=== PATIENT | male | born 1955 | race Caucasian/White ===

== ENCOUNTER 2020-09-05 15:27 | Inpatient (IN) | payer MEDICARE ==
[~2020-09-05] VITALS: Ht 182.9 cm; Wt 90.0 kg
[2020-09-05] MEDS ORDERED: HALOPERIDOL LACT 5 MG/ML VIAL. IM PRN (17:30)
[2020-09-05] MEDS ORDERED: cloNIDine HCL 0.1 MG TABLET PO PRN (17:30)
[2020-09-05] MEDS ORDERED: diphenhydrAMINE 50 MG/ML VIAL IVP PRN (17:30)
[2020-09-05] MEDS ORDERED: ACETAMINOPHEN 325 MG TABLET PO PRN (17:45)
[2020-09-05] MEDS ORDERED: KETOROLAC 30 MG/ML VIAL. IVP PRN (18:00)
[2020-09-05 18:05] LABS: BASO % 1 % (0-3); EOS % 0 % (0-3); HEMATOCRIT 39.7 % (39.0-53.0); HEMOGLOBIN 13.7 g/dL (13.0-17.5); LYMPH # 0.6 x10^3/uL (1.0-4.8); LYMPH % 11 % (24-48); MEAN CORPUSCULAR HEMOGLOBIN 34 pg (25-35); MEAN CORPUSCULAR HGB CONC 34 g/dL (31-37); MEAN CORPUSCULAR VOLUME 99 fL (79-100); MONO # 0.6 x10^3/uL (0.0-1.1); MONO % 10 % (0-9); NEUT # 4.7 x10^3uL (1.8-7.7); NEUT % 78 % (31-73); PLATELET COUNT 187 x10^3/uL (140-400); RED BLOOD COUNT 4.02 x10^6/uL (4.30-5.70); RED CELL DISTRIBUTION WIDTH 13.8 % (11.5-14.5); WHITE BLOOD COUNT 5.9 x10^3/uL (4.0-11.0)
[2020-09-05 18:10] LABS: ALBUMIN 4.3 g/dL (3.4-5.0); ALBUMIN/GLOBULIN RATIO 1.3 (1.0-1.7); CALCIUM 9.1 mg/dL (8.5-10.1); CREATININE 0.6 mg/dL (0.7-1.3); DIRECT BILIRUBIN 0.4 mg/dL (0.0-0.2); GFR 136.1; POTASSIUM 4.4 mmol/L (3.5-5.1); TOTAL BILIRUBIN 1.3 mg/dL (0.2-1.0); TOTAL PROTEIN 7.5 g/dL (6.4-8.2)
--- NOTE | 2020-09-05 19:16 | RAD ---
PQRS Compliance Statement: One or more of the following individualized dose reduction techniques were utilized for this examinat ion: 1. Automated exposure control 2. Adjustment of the mA and/or kV according to patient size 3. Use of iterative reconstruction technique CT head without contrast 09/05/2020 5:55 PM INDICATION: Altered mental status COMPARISON: None available TECHNIQUE: Multiple axial CT images of the head were obtained from skull base through the vertex with out intravenous contrast. FINDINGS: Head: Ventricles, sulci and basal cisterns are prominent compatible with mild generalized cerebral volume l oss.. Low-attenuation in the periventricular white matter is suggestive of chronic small vessel ische lencho changes. There is no hydrocephalus. Stewart-white matter differentiation is normal. There is no acut e intracranial hemorrhage. There is no mass, mass effect or midline shift. Posterior fossa is normal in appearance. Visualized portions of the orbits are normal. Paranasal sinuses are well aerated. Mastoid air cells a re well aerated. Scalp and calvaria are normal. IMPRESSION: No acute intracranial hemorrhage. Mild generalized cerebral volume loss. Low-attenuation in the periventricular white matter is suggest baljinder of chronic small vessel ischemic changes. Electronically signed by: Ting Wood MD (09/05/2020 7:14 PM) [facility]
[2020-09-05 19:44] VITALS: BP 182/79
[2020-09-05] MEDS ORDERED: VENL150C PO (20:14)
[2020-09-05] MEDS ORDERED: DIPH25CA58 PO (20:14)
[2020-09-05] MEDS ORDERED: LISI40TA6 PO (20:14)
[2020-09-05] MEDS ORDERED: CRESTOR10 MG PO (20:14)
[2020-09-05] MEDS ORDERED: METO50TA29 PO (20:14)
[2020-09-05] MEDS: traMADol 50 MG TABLET PO PRN (20:30)
[2020-09-05 21:13] LABS: BARBITURATES NEG (NEG); BENZODIAZEPINES NEG (NEG); CANNABINOIDS POS (NEG); COCAINE NEG (NEG); METHADONE NEG (NEG); OPIATES NEG (NEG); PHENCYCLIDINE NEG (NEG)
[2020-09-05 21:14] LABS: AMPHETAMINE/METHAMPHETAMINE NEG (NEG)
[2020-09-05 21:21] LABS: CLARITY,URINE CLEAR; COLOR,URINE AMBER; GLUCOSE,URINE NEG (NEG)
[2020-09-05 21:22] LABS: BACTERIA,URINE 0 /HPF (0-FEW); BILIRUBIN,URINE MOD (NEG); NITRITE,URINE NEG (NEG); SQUAMOUS EPITHELIAL CELL,UR OCC /LPF; WBC,URINE RARE /HPF (0-4)
[2020-09-05] MEDS: VENLAFAXINE 50 MG TABLET. PO SCH (23:20)
[2020-09-05 23:27] VITALS: BP 162/86
[2020-09-06 06:16] VITALS: BP 158/86
[2020-09-06] MEDS: diphenhydrAMINE HCL 25 MG CAPSULE PO SCH ×2 (08:52→09:00)
[2020-09-06] MEDS: METOPROLOL SUCC 24HR ER 50 MG TAB.ER.24H. PO SCH (08:53)
[2020-09-06] MEDS: LISINOPRIL 20 MG TABLET PO SCH (08:53)
[2020-09-06] MEDS: traMADol 50 MG TABLET PO PRN (08:53)
[2020-09-06] MEDS: MVI, ADULT NO.4 WITH VIT K 10 ML, THIAMINE INJ 100 MG, FOLIC ACID INJ 1 MG in IV NORMAL... IV SCH (08:54)
[2020-09-06] MEDS: VENLAFAXINE 50 MG TABLET. PO SCH ×3 (08:54→21:09)
--- NOTE | 2020-09-06 09:22 | RAD ---
EXAM: XR CHEST 2V 09/05/2020 5:55 PM CLINICAL INDICATION: Shortness of air COMPARISON: None TECHNIQUE: PA and lateral views of the chest FINDINGS: The heart and mediastinum are normal. Lungs are well-expanded. There is a nodule projecti ng over anterior right first rib in the medial right apex, likely costochondral degenerative changes. Underlying pulmonary nodule not entirely excluded although no abnormality seen on lateral view. No c onsolidation, pleural effusion, or pneumothorax. Pulmonary vascularity is normal. Mild right acromio clavicular degenerative joint disease. There is lower cervical fusion hardware.. IMPRESSION: Nodule projecting over the anterior right first rib in the medial right apex is most like ly due to costochondral degenerative changes. An underlying pulmonary nodule is not entirely excluded . Comparison with prior exams would be useful. Otherwise normal chest radiograph. Electronically signed by: Katlin Reyes MD (09/06/2020 9:20 AM) [id number]
[2020-09-06 10:42] VITALS: BP 153/86
[2020-09-06] MEDS ORDERED: NALTREXONE HCL 50 MG TABLET PO SCH (11:00)
[2020-09-06] MEDS: ARIPiprazole 5 MG TABLET PO SCH (11:10)
[2020-09-06] MEDS: PANTOPRAZOLE 40 MG TABLET. PO SCH (11:10)
--- NOTE | 2020-09-06 12:39 | EKG ---
[address] [address] Test Date: 2020-09-06 Test Time: 12:21:19 Pat Name: ANGELLA FLORES Department: Room: 107 A Gender: M [employer]: : 1955 Requested By: CEDRICK HOLLEY Order Number: [id number] Reading MD: Measurements Intervals [place] Rate: 68 P: 55 WI: 168 QRS: 5 QRSD: 92 T: 39 QT: 406 QTc: 437 Interpretive Statements SINUS RHYTHM NO SPECIFIC ECG ABNORMALITIES RI6.01 No previous ECG available for comparison
[2020-09-06] MEDS ORDERED: IOHEXOL 300 MG/ML 75 ML VIAL. IV ONE (13:15)
[2020-09-06 14:16] VITALS: BP 165/83
--- NOTE | 2020-09-06 14:31 | RAD ---
Study: CT chest, abdomen and pelvis with contrast INDICATION: Possible lung mass. COMPARISON: No prior CT imaging of the chest, abdomen or pelvis. TECHNIQUE: Helical CT imaging performed of the chest, abdomen and pelvis after the intravenous admini stration of 75 cc Omnipaque 300. Coronal and sagittal reformats were obtained. One or more of the following individualized dose reduction techniques were utilized for this examinat ion: 1. Automated exposure control 2. Adjustment of the mA and/or kV according to patient size 3. Use of iterative reconstruction technique. FINDINGS: CT Chest: No mass or suspicious pulmonary nodule on either side. A few tiny nodules measuring 2.5 mm or less ar e identified such as at the far inferior lingula on image 46 series 3 but do not warrant dedicated fo llow-up per Fleischner guidelines. No airspace infiltrate, pleural effusion or pneumothorax. Patent c entral airways. Scattered calcific atherosclerosis to include coronary artery involvement. The visualized great vesse ls are patent. No aortic aneurysm or dissection. Normal main pulmonary artery caliber. Very small hiatal hernia. No pathologically enlarged mediastinal or hilar lymph nodes. The visualized thyroid is unremarkable. No axillary lymphadenopathy. No acute or aggressive osseous p rocess. Partially imaged ACDF construct at C6 and C7. Discogenic arthrosis at C7-T1 and T1-T2 CT Abdomen/Pelvis: Diffuse hepatic steatosis. Mildly distended gallbladder without CT manifestations of acute cholecysti tis. Nondilated biliary tree. Mild fatty infiltration of the pancreas. The spleen is normal in size. The morphology of the adrenal glands is within normal limits. No complex renal cyst or mass. No stone or collecting system dilatation. Mildly thick-walled urinary bladder. Mild enlargement of the prostate measuring 4.8 cm transverse. A few colonic diverticuli without diverticulitis. Normal appendix. Small bowel caliber is within norm al limits. Unremarkable stomach. Calcific atherosclerosis throughout the abdominal aorta and to a lesser extent the iliofemoral system . Retroaortic left renal vein. Patent central portal veins and superior mesenteric vein. No lymphadenopathy by size criteria. There appears to be a tiny amount of free pelvic fluid such as s een on image 74 series 4. No pneumoperitoneum. Dorsal fusion construct at L3-L4. Fusion across intervening disc space. Severe discogenic arthrosis a t the junctional L2-L3 level with mild retrolisthesis of L2 on L3. Less pronounced but still advanced discogenic arthrosis at L4/L5. Chronic pars defects at L5. Osseous neural foraminal stenosis bilater ally at L2-L3, L4/L5 and L5-S1 but greatest at L4-L5. Central canal stenosis at L2-L3 which is at geoffrey st moderate. Prominence of the epidural fat particularly at the lower lumbar spine with thecal sac co nstriction. Potentially moderate central canal stenosis at L4-L5. Mild bilateral hip arthrosis. IMPRESSION: CT Chest: 1. No lung mass or suspicious pulmonary nodule that would warrant dedicated follow-up. The radiograp hic observation on the right corresponds to degenerative remodeling at the first costomanubrial inter face. 2. Several chronic findings to include calcific coronary artery disease. CT Abdomen/Pelvis: 1. No acute abnormality seen throughout the abdomen or pelvis and there are no findings concerning f or malignancy. 2. Diffuse hepatic steatosis. 3. Status post dorsal instrumented fusion at L3-L4. Accelerated degenerative changes at the junction al levels seen at L2-L3 more so than L4-L5. At least moderate central canal stenosis at L2-L3. Electronically signed by: EDMOND PERKINS MD (09/06/2020 2:29 PM) [id number]
[2020-09-06] MEDS: traMADol 50 MG TABLET PO SCH ×2 (15:02→21:09)
[2020-09-06 19:43] VITALS: BP 161/87
[2020-09-06 22:44] VITALS: BP 155/78
--- NOTE | 2020-09-07 03:06 | PN ---
SUBJECTIVE: A 64-year-old gentleman who had seizure-like activity at home, ____ going through DTs as he has been having problems with alcohol. There is a nodular projection over the anterior right rib. We will get a CT of that. The patient continued to be monitored and make further evaluation on him as indicated per those results. Otherwise, he is being checked out extensively for his elevated liver enzymes probably related to his situation with his alcoholism. He also has slight hematuria. He still kind of glassy eye, trembling quite a bit of from his DTs. Transfer medications and adjusting medications, continued to have pain, slight depression. Add Abilify and tramadol on a routine basis as he has chronic neck pain and in the like liver enzymes; AST 113, ALT ____. The patient otherwise resting fairly comfortably. OBJECTIVE: VITAL SIGNS: 150/86, respiratory rate 20, pulse 80, afebrile. GENERAL: The patient is alert and oriented, except for glassy eyed. The patient is a little bit trembling, very shaky voice. LUNGS: Clear. CARDIOVASCULAR: Stable. ABDOMEN: Soft, diffuse tenderness in that right upper quadrant. We will get CT scan and make further evaluation on him as indicated. IMPRESSION: Alcohol withdrawal, delirium tremens, seizure activity secondary to delirium tremens. PLAN: Continue to monitor depression, chronic pain management. LORRIE/GELACIO/ZEKE DR: LORRIE/moises TID: [id number]
[2020-09-07 06:17] VITALS: BP 156/86
[2020-09-07] MEDS: diphenhydrAMINE HCL 25 MG CAPSULE PO SCH (08:07)
[2020-09-07] MEDS: traMADol 50 MG TABLET PO SCH (08:08)
[2020-09-07] MEDS: METOPROLOL SUCC 24HR ER 50 MG TAB.ER.24H. PO SCH (08:09)
[2020-09-07] MEDS: PANTOPRAZOLE 40 MG TABLET. PO SCH (08:09)
[2020-09-07] MEDS: LISINOPRIL 20 MG TABLET PO SCH (08:10)
[2020-09-07] MEDS: ARIPiprazole 5 MG TABLET PO SCH (08:11)
[2020-09-07] MEDS: VENLAFAXINE 50 MG TABLET. PO SCH (08:11)
[2020-09-07] MEDS: MVI, ADULT NO.4 WITH VIT K 10 ML, THIAMINE INJ 100 MG, FOLIC ACID INJ 1 MG in IV NORMAL... IV SCH (08:42)
[2020-09-07 12:11] VITALS: BP 164/93
[2020-09-07] MEDS ORDERED: PANT40TA6 PO (12:32)
[2020-09-07] MEDS ORDERED: CLON0.1T PO (12:32)
[2020-09-07] MEDS ORDERED: TRAM50TA PO (12:32)
[2020-09-07] MEDS ORDERED: ARIP5TAB13 PO (12:32)
--- NOTE | 2020-09-07 21:21 | DS ---
DATE OF DISCHARGE: 09/07/2020 HOSPITAL COURSE: This 64-year-old gentleman came in with DTs, has been drinking about 16 beers a day. The patient wants to stop. He says he drinks because he is in pain. Started him on some tramadol, seems to help him, 3 times a day. Does have elevated liver enzymes. He was ____ and cirrhosis of the liver. The patient otherwise says he is feeling better, still very weak, told him to increase his nutrition. Blood pressure is elevated. Started on clonidine 1 tablet twice a day along with his lisinopril and metoprolol. The patient otherwise had elevated liver enzymes, AST of 113, ALT of 114, alkaline phosphatase 122, bilirubin slightly elevated at 1.3. The patient's kidney function, iron 0.6. The patient's CT of the head was unremarkable, mild cerebral loss however. CT of his abdomen and pelvis demonstrated a significant amount of diffuse hepatic steatosis and instrumentation of L3-L4, which was duly noted. The patient otherwise seems to be resting fairly comfortably. He made good progress overall. He will be discharged home. See MRAD. Decrease activity. No alcohol. Follow up in 7-10 days or sooner as needed. IMPRESSION: Delirium tremens, elevated liver enzymes, alcohol detoxification. PLAN: Continue to monitor her accordingly as an outpatient as noted. LORRIE/ALLISON/SAM DR: LORRIE/moises TID: [id number]
== END 2020-09-07 16:04 | disposition home health service (06) | DRG 74 ==
LOC: 1 SOUTH 15:27
PROVIDERS: ADMIT Family Medicine; ATTEND Family Medicine
DX: G90.8 Other disorders of autonomic nervous system (principal); F10.231 Alcohol dependence with withdrawal delirium; R56.9 Unspecified convulsions; G25.2 Other specified forms of tremor; G89.29 Other chronic pain; K74.60 Unspecified cirrhosis of liver; K76.0 Fatty (change of) liver, not elsewhere classified; R03.0 Elevated blood-pressure reading, without diagnosis of hypertension; F32.9 Major depressive disorder, single episode, unspecified
CPT/HCPCS: 36415; 70450; 71046; 71260; 74177; 80053; 80307; 81001; 82140; 82248; 83605; 84484; 85025; 85610; 86705; 86709; 86803; 87340; 93005; J2060; Q0163; Q9967; J7030